=== PATIENT | female | born 1990 | race Caucasian/White ===

== ENCOUNTER 2019-09-23 13:12 | Emergency (ER) | payer OTHER ==
[~2019-09-23] VITALS: Ht 172.7 cm; Wt 99.8 kg
[2019-09-23] MEDS ORDERED: NORCO 10-325 T1 EACH PO ×2 (14:33→19:34)
[2019-09-23 14:39] LABS: ABSOLUTE NEUTROPHILS 8.7 thou/uL (1.4-8.2); BASOPHILS 0.5 % (0.0-2.0); EOSINOPHILS 2.6 % (0.0-3.0); HEMATOCRIT 40.4 % (37.0-47.0); HEMOGLOBIN 13.7 gm/dL (12.0-15.0); LYMPHOCYTES 13.5 % (24.0-44.0); MCH 31.3 pg (26.0-34.0); MCHC 33.8 g/dL (28.0-37.0); MCV 92.6 fL (80.0-100.0); MONOCYTES 6.6 % (1.0-8.0); PLATELET COUNT 327 thou/uL (150-400); POLYS 76.8 % (36.0-66.0); RBC 4.37 mil/uL (4.20-5.00); RDW 14.7 % (10.5-14.5); WBC 11.3 thou/uL (4.0-11.0)
[2019-09-23 14:43] LABS: CALCIUM 8.8 mg/dL (8.5-10.1); CREATININE 0.8 mg/dL (0.6-1.0); POTASSIUM 3.7 mmol/L (3.5-5.1)
[2019-09-23 20:09] VITALS: BP 113/72
== END 2019-09-23 20:11 | disposition home or self-care (01) ==
LOC: ER 13:12
PROVIDERS: Nurse Practitioner Family
DX: R22.0 Localized swelling, mass and lump, head (principal); R51 Headache; R68.84 Jaw pain; K08.89 Other specified disorders of teeth and supporting structures; J45.909 Unspecified asthma, uncomplicated